=== PATIENT | female | born 1950 | race Caucasian/White ===

== ENCOUNTER → 2016-03-21 | Outpatient (CLI) | payer OTHER, MEDICARE ==
--- NOTE | 2016-03-21 16:17 | CT ---
EXAM DESCRIPTION: CT CHEST WITHOUT IV CONTRAST CLINICAL HISTORY: INTERCOSTAL PAIN COMPARISON: None. TECHNIQUE: Noncontrast CT images of the chest are obtained. CT scan done according to ALARA (As Low As Reasonably Achievable). FINDINGS: The heart shows mild calcified plaque of the thoracic aorta without aneurysmal dilatation. No pathologically enlarged mediastinal, hilar, or axillary lymphadenopathy is seen. Trace probably physiologic pericardial fluid. No pleural effusion. Visualized portion of the upper abdomen shows no acute findings. There is a 4 mm noncalcified pulmonary nodule in the posterior right lung apex on image 12. There is a 6 mm noncalcified pulmonary nodule in the right lower lobe on image 41. Mild interstitial scarring or atelectasis in the lingula seen. A small calcified pulmonary nodule in the left lung base is seen. Ground-glass noncalcified pulmonary nodule in the left lower lobe measuring 6 mm on image 38 is seen. Osseous structures show no aggressive bony lesions. No displaced rib fracture is identified. Moderate disc degenerative changes of the mid thoracic spine are seen. IMPRESSION: Several noncalcified pulmonary nodules are seen. These are nonspecific. Recommend followup CT imaging in 6 months to determine long-term stability. Otherwise no acute findings on CT of the chest without contrast. Electronically signed by: Carrillo Short MD 03/21/2016 16:16
== END | disposition home or self-care (01) ==
LOC: CT 14:25
PROVIDERS: ATTEND Family Medicine
DX: R07.82 Intercostal pain (principal)

== ENCOUNTER → 2016-03-30 | Outpatient (CLI) | payer OTHER, MEDICARE ==
--- NOTE | 2016-04-01 09:00 | NM ---
EXAM DESCRIPTION: NM BONE SCAN WHOLE BODY CLINICAL HISTORY: RIGHT SIDE RIB PAIN COMPARISON: CT chest 03/21/2016. TECHNIQUE: Patient injected with 28 mCi of technetium 99M MDP IV. Delayed gamma camera images from various planes were obtained 3 hr after injection. FINDINGS: Activity in the bilateral ribs is symmetric anterior and posterior. Increased activity in the L3 vertebral body. Also in the bilateral knees, bilateral feet, right great toe MTP joint, bilateral AC joints, and the left hip greater trochanter posterior. Also posterior inferior cervical spine more left than right. This activity is most likely related to degenerative process. No abnormal activity in the long or flat bones of the axial or appendicular skeleton. IMPRESSION: 1. No abnormal activity or uptake in the bilateral ribs. 2. Activity in the spine and various joints indicative of degenerative changes. Electronically signed by: Dwayne Dejesus MD 04/01/2016 08:58
== END | disposition home or self-care (01) ==
LOC: NM 08:33
PROVIDERS: ATTEND Family Medicine
DX: R07.82 Intercostal pain (principal)

== ENCOUNTER → 2016-05-24 | Outpatient (CLI) | payer OTHER, MEDICARE ==
--- NOTE | 2016-05-24 15:46 | MRI ---
EXAM DESCRIPTION: Thoracic Spine w/o Contrast CLINICAL HISTORY: 65 years Female, RADICULOPATHY Multiplanar, multisequence imaging of the thoracic spine was performed without contrast. The data was reformatted for interpretation. FINDINGS: Vertebral body height, marrow signal and alignment are unremarkable. Disc desiccation at all levels. This is most pronounced at T10-T11 in which there is disc desiccation and complete intervertebral disc height loss anteriorly. This results in anterior osteophytes and endplate edema. Small posterior disc protrusions noted at T4-T5, T8-T9, T9-T10, T10-T11 and T11-T12. There is no definitive cord contact at any level. No abnormal cord signal or spinal canal narrowing. No neuroforaminal narrowing at any level. IMPRESSION: Today's exam demonstrates multilevel degeneration, but no cord contact, spinal canal narrowing or neuroforaminal narrowing at any level. The degenerative changes most pronounced at T10-T11 in which there is near complete intervertebral disc height loss anteriorly at T10-T11 and endplate edema. Electronically signed by: Erich Hinkle MD 05/24/2016 3:45 PM CDT
== END ==
LOC: MRI 07:32
PROVIDERS: ATTEND Physical Medicine & Rehabilitation
DX: M54.14 Radiculopathy, thoracic region (principal)

== ENCOUNTER → 2016-06-07 | Outpatient (CLI) | payer OTHER, MEDICARE | END | disposition home or self-care (01) | LOC: GMAB 14:04 | PROVIDERS: ATTEND Family Medicine | DX: E03.9 Hypothyroidism, unspecified (principal) ==

== ENCOUNTER → 2017-01-04 | Outpatient (CLI) | payer OTHER, MEDICARE ==
--- NOTE | 2017-01-05 13:10 | MAM ---
EXAM DESCRIPTION: 3D Screening BILATERAL : Digital Mammography. CLINICAL HISTORY: 66 years Female SCREENING . No complaints. No family history breast cancer. Postmenopausal. No HRT. COMPARISON: 2-D digital screening bilateral studies 01/04/2016 and 07/08/2012. No prior reports available. Reports from prior examinations also reviewed. Report from prior examination also reviewed. TECHNIQUE: Bilateral CC and MLO projection full-field images, 3-D tomosynthesis digital mammographic technique. Also bilateral synthesized CC/ MLO full-field images. CAD not utilized. FINDINGS: The breast parenchymal density pattern is: Scattered areas of fibroglandular density. No skin thickening or nipple retraction bilateral intramammary lymph nodes. Benign-type solitary microcalcifications bilaterally.. No focal, stellate mass or density, focal asymmetry , and no suspicious microcalcifications bilaterally. Stable mammograms compared to prior studies taking into account differences in mammographic technique IMPRESSION: BI-RADS CATEGORY: 2 - BENIGN FINDINGS. FOLLOW UP: Routine digital bilateral screening, one year interval from December 2016. Written communication explaining the IMPRESSION and follow-up, will be mailed to the patient and referring health care provider. According to the [employer], yearly mammograms are recommended starting at age 40 and continuing as long as a woman is in good health. Any breast change noted on a breast self-exam should be reported promptly to the patient's healthcare provider. Breast MRI is recommended for women with an approximately 20-25% or greater lifetime risk of breast cancer, including women with a strong family history of breast or ovarian cancer and women who have been treated for Hodgkin's disease. A negative mammographic report should not delay tissue diagnosis in patients with significant clinical history or physical findings. Extremely dense breast tissue limits the sensitivity of digital mammography. Electronically signed by: Dwayne Dejesus MD 01/05/2017 1:09 PM [facility]
== END ==
LOC: MAMMO 14:49
PROVIDERS: ATTEND Family Medicine
DX: Z12.31 Encounter for screening mammogram for malignant neoplasm of breast (principal)
CPT/HCPCS: 77063; G0202

== ENCOUNTER → 2017-03-15 | Outpatient (CLI) | payer OTHER, MEDICARE | LOC: GMAB 14:43 | PROVIDERS: ATTEND Family Medicine | DX: E03.9 Hypothyroidism, unspecified (principal) ==

== ENCOUNTER → 2017-05-07 | Outpatient (CLI) | payer OTHER, MEDICARE | LOC: GMAB 14:22 | PROVIDERS: ATTEND Family Medicine | DX: E03.9 Hypothyroidism, unspecified (principal) ==

== ENCOUNTER → 2017-10-18 | Outpatient (CLI) | payer OTHER, MEDICARE | LOC: GMAE 10:39 | PROVIDERS: ATTEND Family Medicine | DX: E03.9 Hypothyroidism, unspecified (principal) ==

== ENCOUNTER → 2018-01-17 | Outpatient (CLI) | payer OTHER, MEDICARE | LOC: GMAE 10:16 | PROVIDERS: ATTEND Family Medicine | DX: E03.9 Hypothyroidism, unspecified (principal) ==

== ENCOUNTER → 2018-07-24 | Outpatient (CLI) | payer OTHER, MEDICARE | LOC: GMAE 10:34 | PROVIDERS: ATTEND Family Medicine | DX: E03.9 Hypothyroidism, unspecified (principal); R53.1 Weakness; E55.9 Vitamin D deficiency, unspecified ==

== ENCOUNTER → 2018-09-03 | Outpatient (CLI) | payer OTHER, MEDICARE | LOC: GMAE 11:44 | PROVIDERS: ATTEND Family Medicine | DX: D51.9 Vitamin B12 deficiency anemia, unspecified (principal); E55.9 Vitamin D deficiency, unspecified ==

== ENCOUNTER → 2018-11-12 | Outpatient (CLI) | payer OTHER, MEDICARE | LOC: GMAE 10:40 | PROVIDERS: ATTEND Family Medicine | DX: Z00.00 Encounter for general adult medical examination without abnormal findings (principal); E03.9 Hypothyroidism, unspecified ==

== ENCOUNTER → 2019-02-13 | Outpatient (CLI) | payer OTHER, MEDICARE | LOC: GMAE 10:36 | PROVIDERS: ATTEND Family Medicine | DX: E03.9 Hypothyroidism, unspecified (principal); E78.2 Mixed hyperlipidemia ==

== ENCOUNTER → 2020-02-18 | Outpatient (CLI) | payer OTHER, MEDICARE | LOC: GMAE 10:46 | PROVIDERS: ATTEND Family Medicine | DX: Z00.00 Encounter for general adult medical examination without abnormal findings (principal) ==

== ENCOUNTER 2020-03-13 10:53 | Emergency (ER) | payer OTHER, MEDICARE ==
[2020-03-13 11:07] VITALS: TEMP 97.1
[2020-03-13] MEDS ORDERED: LIDOCAINE 1% W/ EPINEPHRINE 20 ML VIAL INJ ONE (11:12)
[2020-03-13] MEDS ORDERED: TETANUS,DIPHTHERIA,PERTUSSIS 1 EA SYG IM ONE (11:16)
--- NOTE | 2020-03-13 11:42 | RAD ---
EXAM DESCRIPTION: Hand,Left 2 Views CLINICAL HISTORY: 69 years Female, fall wiht pain COMPARISON: None. FINDINGS: 2 views of the left hand show no acute fracture or malalignment. Advanced degenerative changes at the first CMC joint with less advanced degenerative changes elsewhere in the left hand. Posterior soft tissue swelling. No radiopaque foreign body or soft tissue gas. IMPRESSION: Posterior soft tissue swelling without acute fracture or malalignment. Electronically signed by: Fritz Carbajal MD 03/13/2020 11:41 AM [facility]
--- NOTE | 2020-03-13 11:46 | CT ---
EXAM DESCRIPTION: Cervical Spine CLINICAL HISTORY: fall wiht pain COMPARISON: None available. TECHNIQUE: CT of the cervical spine was performed without IV contrast. This exam was performed according to our departmental dose-optimization program, which includes automated exposure control, adjustment of the mA and/or kV according to patient size and/or use of iterative reconstruction technique. FINDINGS: No cervical vertebral body fracture or subluxation. The spinous processes are intact. Moderately advanced multilevel degenerative changes including degenerative disc and facet joint disease, disc space narrowing is worse at C4-5, C5-6 and C6-7. Reversal of physiologic cervical lordosis. No apical pneumothorax. No thyroid nodule. No cervical adenopathy. IMPRESSION: Moderately advanced multilevel degenerative changes without acute cervical spine abnormality. Electronically signed by: Fritz Carbajal MD 03/13/2020 11:45 AM [facility]
--- NOTE | 2020-03-13 11:49 | CT ---
EXAM DESCRIPTION: Head CLINICAL HISTORY: 69 years, Female, fall wiht pain COMPARISON: None TECHNIQUE: Head CT was performed without IV contrast. This exam was performed according to our departmental dose-optimization program, which includes automated exposure control, adjustment of the mA and/or kV according to patient size and/or use of iterative reconstruction technique. FINDINGS: No acute intracranial hemorrhage. No midline shift. The ventricles are not dilated. Mcdonald-white matter differentiation is intact. No posterior fossa lesion. Left periorbital/left frontal soft tissue swelling without calvarial fracture. The paranasal sinuses and orbits are unremarkable. IMPRESSION: Left periorbital/frontal soft tissue swelling without acute intracranial abnormality. Electronically signed by: Fritz Carbajal MD 03/13/2020 11:47 AM [employer]
[2020-03-13] MEDS ORDERED: NEOMYCIN-BACITRACIN-POLYMYXIN 0.9 GM UD TOP ONE (11:51)
--- NOTE | 2020-03-13 12:14 | ED.PDOC ---
History of Present Illness - General Chief Complaint: Laceration Stated Complaint: laceration to forehead Time Seen by Provider: 03/13/20 11:08 Source: patient Exam Limitations: no limitations - History of Present Illness Initial Comments: The patient is a 69-year-old female who tripped and fell forward and hit her forehead on a dumpster. The patient has a three-quarter inch laceration above the left eyebrow along with an underlying hematoma. No loss of consciousness. Patient also has a small hematoma to the dorsal aspect of her left hand. Normal range of motion. She has some mild pain to the lateral lower aspect of her neck posteriorly. No central pain and no step-off. No neurological changes. She is pleasant and cooperative. She is not on any blood thinners. Timing/Duration: momentarily Severity: moderate Improving Factors: nothing Worsening Factors: nothing Associated Symptoms: headaches Allergies/Adverse Reactions: Allergies Penicillins Allergy (Verified 03/13/20 11:07) Sulfa Antibiotics Allergy (Verified 03/13/20 11:07) Home Medications: Ambulatory Orders Clindamycin HCl 300 mg PO BID #7 cap 03/13/20 Review of Systems - Review of Systems Constitutional: States: no symptoms reported EENTM: States: no symptoms reported Respiratory: States: no symptoms reported Cardiology: States: no symptoms reported Gastrointestinal/Abdominal: States: no symptoms reported Genitourinary: States: no symptoms reported Musculoskeletal: States: see HPI Skin: States: see HPI Neurological: States: see HPI Endocrine: States: no symptoms reported All other Systems: No Change from Baseline Past Medical History (General) - Patient Medical History Hx Stroke: No Hx Congestive Heart Failure: No Hx Thyroid Disease: Yes Hx Diabetes: No Surgical History: Hysterectomy - Vaccination History Hx Tetanus, Diphtheria Vaccination: - unknown Hx Influenza Vaccination: Yes Hx Pneumococcal Vaccination: Yes Immunizations Comment: COVID vaccine - Social History Hx Tobacco Use: Yes Family Medical History - Family History Mother Family History: Unknown Living Status: Unknown Physical Exam - Physical Exam General Appearance: Alert, Comfortable, No apparent distress Eye Exam: bilateral normal Ears, Nose, Throat: hearing grossly normal, normal ENT inspection, other - Midface is stable. Ear canals are clear. Neck: full range of motion, other - See history of present illness. Respiratory: lungs clear, normal breath sounds, no respiratory distress, no accessory muscle use Cardiovascular/Chest: normal peripheral pulses, regular rate, rhythm, no edema Peripheral Pulses: radial,right: 2+, radial,left: 2+ Gastrointestinal/Abdominal: non tender, soft Rectal Exam: deferred Extremity: normal range of motion, no pedal edema, no calf tenderness, normal capillary refill, other - See history of present illness. 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 Underlying hematoma. Hematoma to the dorsal aspect of the left hand. Abrasion to the mid right forearm. Comments: Vital Signs - 24 hr 03/13/20 03/13/20 11:01 12:01 Temperature 97.1 F L Pulse Rate [ 87 72 Left Brachial] Respiratory 20 20 Rate Blood Pressure 193/103 150/68 [Left Arm] O2 Sat by Pulse 95 97 Oximetry Progress - Progress Progress: 03/13/20 12:15 The patient is a 69-year-old female presented emergency room secondary to having sustained a left forehead hematoma with overlying laceration along with a hematoma to the left hand and abrasion to the right forearm after a fall. CT scans of the head and cervical spine along with x-ray of the left hand are reassuring. The wound to the left forehead was cleaned with saline and 3 simple sutures of 4-0 Ethilon were used for reapproximation. The patient will be on clindamycin for a couple of days to prevent infection. ER warnings are given. Wounds are dressed. Keep routine follow-up with primary care doctor. colleen martha [id number] - Results/Orders Results/Orders: CT scan of the head shows no acute intracranial pathology. Left forehead scalp hematoma is noted. CT scan of the cervical spine shows no obvious acute pathology. She does have chronic degenerative changes. X-ray of the left hand shows no evidence of acute bony pathology. See reports above for details. Procedure note: Risk and benefits were explained patient agrees to proceed with repair. Wound is cleaned with sterile saline. 3 simple sutures of 4-0 Ethilon were used for reapproximation of the wound after 3 cc of lidocaine with epinephrine was injected. Patient tolerated procedure well. Sutures need to come out in about a week. Departure - Departure Clinical Impression: Accidental laceration Fall Qualifiers: Encounter type: initial encounter Qualified Code(s): W19.XXXA - Unspecified fall, initial encounter Scalp hematoma Qualifiers: Encounter type: initial encounter Qualified Code(s): S00.03XA - Contusion of scalp, initial encounter Disposition: Discharge to Home or Self Care Condition: Fair Departure Forms: ED Discharge - Pt. Copy, Patient Portal Self Enrollment Instructions: DI for Laceration Repair, Laceration Repair With Stitches (DC) Diet: regular diet Activity: increase activity as tolerated Referrals: LAUREN APPIAH MD [Primary Care Provider] - 1-2 Weeks Prescriptions: Clindamycin HCl 300 mg PO BID #7 cap Home Medications: Ambulatory Orders Clindamycin HCl 300 mg PO BID #7 cap 03/13/20 Additional Instructions: The patient is a 69-year-old female presented emergency room secondary to having sustained a left forehead hematoma with overlying laceration along with a hematoma to the left hand and abrasion to the right forearm after a fall. CT scans of the head and cervical spine along with x-ray of the left hand are reassuring. The wound to the left forehead was cleaned with saline and 3 simple sutures of 4-0 Ethilon were used for reapproximation. Sutures need to be removed in about a week. The patient will be on clindamycin for a couple of days to prevent infection. ER warnings are given. Wounds are dressed. Keep routine follow-up with primary care doctor.
[2020-03-13 12:27] VITALS: BP 153/74; O2SAT 95
== END 2020-03-13 12:27 | disposition home or self-care (01) ==
LOC: ER 10:53
DX: S01.81XA Laceration without foreign body of other part of head, initial encounter (principal); M54.2 Cervicalgia; S60.222A Contusion of left hand, initial encounter; S50.811A Abrasion of right forearm, initial encounter; Z87.891 Personal history of nicotine dependence; Z88.0 Allergy status to penicillin; Z88.2 Allergy status to sulfonamides; W01.198A Fall on same level from slipping, tripping and stumbling with subsequent striking against other object, initial encounter; Y93.89 Activity, other specified; Y92.9 Unspecified place or not applicable